=== PATIENT | male | born 1965 | race Caucasian/White ===

== ENCOUNTER 2020-08-08 07:43 | Outpatient (REF) | payer OTHER, SELFPAY ==
--- NOTE | ~2020-08-08 | MR_ITS ---
EXAMINATION: MR SHOULDER WITHOUT CONTRAST, RIGHT CLINICAL INFORMATION: Shoulder pain. Rule out torn tendon. COMPARISON: None. TECHNIQUE: MRI of the shoulder without contrast was performed on a high-field scanner. FINDINGS: ROTATOR CUFF: Mild supraspinatus tendinosis. Mild articular-sided fraying anteriorly measuring 0.8 x 0.7 cm (AP, ML). Infraspinatus, teres minor is intact. Moderate subscapularis tendinosis. No muscle atrophy or fatty infiltration. BICEPS: Thin caliber and mild irregularity of the extra-articular proximal biceps tendon. The intra-articular portion is not clearly visualize. Findings raise concern for biceps tendon at least partial tearing. CORACOACROMIAL ARCH: The undersurface of the acromion is curved with no subacromial spur. Mild acromioclavicular joint arthritis. Minimal subacromial-subdeltoid bursitis. LABRUM/CAPSULE: Superior labral degeneration, with free edge fraying, as well as with T2 bright signal in the posterior aspect of the superior labrum, appearing to extend to the free edge, raises concern for a tear. Remainder of the labrum appears intact. Inferior capsule is intact. GLENOHUMERAL JOINT/MARROW: No fracture. Subcortical cyst and presumed reactive edema in the lesser tuberosity. Small joint fluid. MR/MR shoulder RT wo con IMPRESSION: 1. Mild supraspinatus tendinosis. 0.8 x 0.7 cm articular-sided fraying anteriorly. 2. Moderate subscapularis tendinosis. 3. Findings raise concern for tear of the long head biceps tendon, with probable at least partial tearing. The intra-articular portion of the tendon is not clearly visualize. 4. Superior labral degenerative fraying/tearing, detailed above. 5. Mild acromioclavicular osteoarthritis. Minimal subacromial-subdeltoid bursitis.
== END 2020-08-08 07:44 | disposition home or self-care (01) ==
LOC: HO.MRI 07:43
PROVIDERS: PCP Internal Medicine; Visit Provider Internal Medicine
DX: M25.511 Pain in right shoulder (principal)
CPT/HCPCS: 73221

== ENCOUNTER 2020-08-14 10:53 | Outpatient (REF) | payer OTHER, SELFPAY ==
--- NOTE | ~2020-08-14 | XR_ITS ---
EXAMINATION: XR SHOULDER, RIGHT CLINICAL INFORMATION: Pain COMPARISON: Previous x-ray September 2019 and MRI July 2020 TECHNIQUE: Three views of the right shoulder. FINDINGS: Bone alignment is normal. No fracture or dislocation is seen. There is mild arthritis at the acromioclavicular joint. The glenohumeral joint is normal. Soft tissues are normal. XR/XR shoulder RT min 2V IMPRESSION: Mild arthritis at the acromioclavicular joint.
== END 2020-08-14 10:54 | disposition home or self-care (01) ==
LOC: HO.HOSX 10:53
PROVIDERS: Visit Provider Orthopaedic Surgery
DX: Z13.89 Encounter for screening for other disorder (principal)

== ENCOUNTER → 2020-08-16 09:30 | Outpatient (BNVA) | payer OTHER, SELFPAY | PROVIDERS: PCP Internal Medicine; Visit Provider Orthopaedic Surgery | DX: M75.41 Impingement syndrome of right shoulder (principal); S46.111S Strain of muscle, fascia and tendon of long head of biceps, right arm, sequela | CPT/HCPCS: 73030 ==

== ENCOUNTER → 2020-09-05 08:09 | Outpatient (BNVA) | payer OTHER, SELFPAY | PROVIDERS: PCP Internal Medicine; Visit Provider Physician Assistant ==

== ENCOUNTER 2020-09-07 06:10 | Day surgery (SDC) | payer OTHER, SELFPAY ==
--- NOTE | 2020-09-05 13:44 | HO.ANESPROP2 ---
Documented by User: Saira Preston 09/05/20 13:45 HPI - Anesthesia Eval Consult details Narrative: 54yo M for Shoulder Arthroscopy, Arthroscopic Subacromial Decompression, Right PMFSH Active Problems Active Problems: All Active Problems (Updated 09/01/20 @ 10:56 by Helen Cruz) Rotator cuff impingement syndrome of right shoulder (Acute) Rupture of right long head biceps tendon (Acute) Past Medical History Medical History No significant medical problems Surgical History Surgical History Hx of cholecystectomy Hx of hernia repair Hx of vasectomy Social History Social History Smoking Status: Former smoker Smoking Quit Date: 2010 Use of substances other than those prescribed or required for medical reasons: Yes Substance Use Frequency: Daily Advance Directives Information Provided: No Current occupational status: employed Current occupation: [employer]/right handed Meds Allergies Allergy/AdvReac Type Severity Reaction Status Date / Time bacitracin [Bacitracin] Allergy Severe ANAPHYLAXIS Verified 09/07/20 06:18 ALL antibiotic ointments Allergy Severe anaphylaxis Uncoded 09/01/20 11:01 Exam Exam Date and Time: September 05, 2020 1344 Height,Weight and Vital Signs: Height 5 ft 2 in Assessment and Plan Assessment Anesthesia Assessment: Chart Reviewed Documented by User: Chalo Everett MD 09/07/20 08:09 PMFSH Past Medical History Medical History No significant medical problems Surgical History Surgical History Hx of cholecystectomy Hx of hernia repair Hx of vasectomy Social History Social History Smoking Status: Former smoker Smoking Quit Date: 2010 Use of substances other than those prescribed or required for medical reasons: Yes Substance Use Frequency: Daily Advance Directives Information Provided: No Current occupational status: employed Current occupation: [employer]/right handed Meds Allergies Allergy/AdvReac Type Severity Reaction Status Date / Time bacitracin [Bacitracin] Allergy Severe ANAPHYLAXIS Verified 09/07/20 06:18 ALL antibiotic ointments Allergy Severe anaphylaxis Uncoded 09/01/20 11:01 Exam Airway Mallampati Class: II TM Dist: >3cm Neck ROM: Full Loose/Missing/Broken Teeth: No Heart: RRR Lungs: NL Assessment and Plan Assessment Anesthesia Assessment: Anesthesia Plan Discussed and Chart Reviewed Final Anesthetic Review NPO: Yes ASA Class: I Final Preanesthetic Review: No Changes in Pt Med Stat, Meds/Allgs Chart Reviewed, Consent Obtained/Reviewed and Anes Risks/Benef Reviewed Patient Risk: Low Procedure Risk: Low Anesthetic Plan Anesthetic Plan: GA Disposition: Standard PACU
[2020-09-07] VITALS (9 sets, daily range): BP systolic 118–156; BP diastolic 84–105; PULSE 57–87; RESP 16–20; TEMP 36.4–37; O2SAT 96–100; BMI 24.7
[2020-09-07] MEDS: Lactated Ringers 1,000 ML 100 ML IVCONT (06:39)
--- NOTE | 2020-09-07 07:51 | MHC.SHP ---
Pre-Procedural Eval Section A The patient is an INPATIENT: No Changes since office visit: No Cold of Flu in the past 2 weeks, No New Medical Problems, No Changes in Medication and No Patient answered all questions The History & Physical has been completed within 30 days and I have reviewed it.: Yes Section B Chief Complaint: Impingment syndrome, Strain of muscle Allergies: Allergies Allergy/AdvReac Type Severity Reaction Status Date / Time bacitracin [Bacitracin] Allergy Severe ANAPHYLAXIS Verified 09/07/20 06:18 ALL antibiotic ointments Allergy Severe anaphylaxis Uncoded 09/01/20 11:01 Plan I have reviewed the history and physical and performed a pertinent physical examination on my patient. No changes have occurred unless specified.
--- NOTE | 2020-09-07 09:17 | W.PM.OPN ---
Operative Note Operative Note Date of Service: 09/07/20 Narrative: ARTHROSCOPIC SHOULDER SURGERY SURGEON: Dr Ceci Patiño) Kvng SHIRLEY RESPIRATORY SCIENTIST: PREOP DIAGNOSIS:right rotator cuff impingement with long head of biceps tear POSTOP DIAGNOSIS:same with labral injury OPERATIVE PROCEDURE: Arthroscopic surgery right shoulderwith debridement labrum and long head of biceps origin/arthroscopic subacromial decompression CLINICAL NOTE: This individual comes in today in regards to their shoulder. He has had ongoing problems with right extended period time. It failed non management. Therefore after explaining risks benefits alternatives and answering her questions it was mutually agreed upon to carry following procedure. OPERATIVE DETAILS Under regional and general anesthetic the patient was placed supine initially on the operating table. An EUA was performed demonstrated full range of motion no evidence of any instability. The patient was then placed in the left lateral decubitus position. The shoulder and arm were then prepped and draped in standard fashion. Surgical time-out was then performed patient's identified. Procedure confirmed. Site confirmed. Medical and allergy history was reviewed. No preoperative antibiotics. Standard DVT prophylaxis. All other items were discussed and agreed upon. The arm was placed in approximately 35 be degrees of abduction with 10 degrees of forward flexion and approximately 12 lb of traction. Standard posterior portals established through a stab incision and the glenohumeral joint was entered atraumatically. A standard anterior portals established from an inside-out technique. The joint was then inspected. The long head head of the biceps was missing with the stump remaining. The rotator cuff was then inspected. it demonstrated that it was fully intact. There was a normal bare area. The glenohumeral joint was then inspected.. At this point everything that could be done within the glenohumeral joint had been accomplished and therefore we proceeded to the next portion of the surgery. The scope instruments were withdrawn from the glenohumeral joint. A standard lateral portal was established through a stab incision and the cannula inserted. The scope was introduced in the subacromial space from the posterior portal. Using a combination of the ArthroCare and the Ultra cut shaver the bursal tissue was removed. Cautery was used to us was coagulated any bleeders. The periosteal was removed from the undersurface of the acromion. The AC joint was identified and opened. The undersurface of the clavicle was noted. There was a type 3 acromion. The rotator cuff was inspected from the bursal side and found to be intact. Using the Ultra cut as well as the oval rosamaria, the anterior osteophyte was completely removed. The acromion was flat from anterior to posterior medial to lateral. The undersurface of the clavicle was beveled. At this point there was plenty room for the rotator cuff. This remaining CA ligament was released with the ArthroCare. And therefore proceeded to closure. All scope instruments were withdrawn. The stab incisions were closed with interrupted nylon sutures. Sterile dressings were then applied. The arm was taken out of traction placed in a sling. The patient then had the anesthesia reversed. They were transferred supine to the room bed then taken to the recovery room in good condition. Intraoperatively there was less than 10 cc blood loss. No complications.
[2020-09-07] MEDS: Acetaminophen 325 MG TABLET 650 MG PO (09:34)
[2020-09-07] MEDS: ondansetron HCL 4 MG/2 ML VIAL IVPUSH (09:58)
[2020-09-07] MEDS: Ketorolac Tromethamine 15 MG/ML VIAL IVPUSH (10:28)
== END 2020-09-07 11:43 | disposition home or self-care (01) ==
PROVIDERS: PCP Internal Medicine; Visit Provider Orthopaedic Surgery
PROC: (CPT 29805; principal; 2020-09-07 07:30)
DX: S46.111A Strain of muscle, fascia and tendon of long head of biceps, right arm, initial encounter (principal); M75.41 Impingement syndrome of right shoulder; X58.XXXA Exposure to other specified factors, initial encounter; Y93.9 Activity, unspecified; Y92.9 Unspecified place or not applicable; Y99.8 Other external cause status; Z87.891 Personal history of nicotine dependence; Z88.1 Allergy status to other antibiotic agents
CPT/HCPCS: 29823; 29826; J0171; J1170; J1885; J2250; J2405; J2550

== ENCOUNTER → 2020-09-19 09:42 | Outpatient (BNVA) | payer OTHER, SELFPAY | PROVIDERS: PCP Internal Medicine; Visit Provider Physician Assistant ==

== ENCOUNTER 2020-10-06 08:00 | Outpatient (RCR) | payer OTHER, SELFPAY ==
--- NOTE | 2020-09-29 08:53 | MHC.PT.EP ---
[facility] [place] Office [place] Office [place] Office [address] Onesimo Castanon [address] [phone] F: [phone] F: [phone] F: [phone] F: [phone] Physical Therapy Plan of Care Date of Evaluation: Date of Surgery: 09/07/20 Diagnosis: post-op R SAD on 09/07/20 Assessment: pt presents post R SAD on 09/07/20. pt presents to physical therapy with pain, decreased range of motion, decreased strength, impaired functional mobility, and impaired postural awareness. pt is a good candidate for skilled PT due to age, potential remediation of impairments, typical disease/condition progression and prognosis, comorbidities, and motivation. pt would benefit from tailored strengthening and stretching exercise program, functional training, postural re-training, neuromuscular re-education, modalities as needed for pain, equipment safety demonstration. Frequency and Duration: The patient will be seen 2x/wk for 6 wks Short Term Goals: pt will be I w/ HEP to promote self-management of condition. pt will improve R shoulder flexion to 160 degrees to facilitate ease in reaching for objects on higher shelves. 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 pt will report a statistically significant improvement in self-reported outcome measure, SPADI, to promote return to PLOF. Treatment Plan: Modalities to reduce pain, spasms and effusion. Manual therapy to restore motion and function. Therapeutic exercise to improve strength and flexibility. Neuromuscular re-education for posture and balance. Therapeutic activities to return to functional activities of daily living. Electronically signed by: Faustina Florian PT, DPT Please sign and return to therapist. Thank you for your referral.
--- NOTE | 2020-10-20 08:41 | MHC.PT.DC ---
[facility] [place] Office [place] Office [place] Office [address] Onesimo Castanon [address] [facility] [phone] F: [phone] F: [phone] F: [phone] F: [phone] Physical Therapy Discharge Report Diagnosis: post-op R SAD on 09/07/20 Date of Surgery: 09/07/20 Date of Evaluation: 09/29/20 Date of Discharge: 10/20/20 Treatments to Date: 3 Cancellations to Date: 2 No Shows to Date: 2 Discharge Status: Visit Non-compliance Discharge Summary: The patient has no showed two consecutive appointments. Per [facility] policy the patient is to be discharged for visit non-compliance. He is discharged from this physical therapy plan of care. Electronically signed by: Faustina Florian PT, DPT Please sign and return to therapist. Thank you for your referral.
== END 2020-10-20 08:42 | disposition other institution (70) ==
LOC: HO.PT 08:00
PROVIDERS: PCP Internal Medicine; Visit Provider Orthopaedic Surgery
DX: M75.41 Impingement syndrome of right shoulder (principal)
CPT/HCPCS: 97110; 97161

== ENCOUNTER → 2020-10-17 08:36 | Outpatient (BNVA) | payer OTHER, SELFPAY | PROVIDERS: PCP Internal Medicine; Visit Provider Physician Assistant ==

== ENCOUNTER 2025-02-14 08:55 | Outpatient (AMB) | payer OTHER, SELFPAY ==
--- NOTE | 2025-02-14 07:55 | A.OFFPC_ITS ---
Vital Signs 02/14/25 09:02 Height 5 ft 2 in Weight 134 lb BMI 24.5 BP 140/84 H Blood Pressure Location Rt brachial Position Sitting Respiration 18 Pulse 77 Pulse Source Pulse Oximeter Temp 98.6 F Temp Source Temporal Artery Scan Pulse Oximetry (%) 99 Oxygen Delivery Method Room Air Intake Visit Reasons: Routine / Dr Irizarry - see comments School Psychological Examiner Required: No Accompanied by: Self / Same As Patient Allergies bacitracin (Bacitracin) Allergy (Severe, Verified 02/14/25 07:56) ANAPHYLAXIS ALL antibiotic ointments Allergy (Severe, Uncoded 10/17/20 08:52) anaphylaxis Medication List - Last Reconciled 02/14/25 by JEREMIE Cox multivitamin 1 tab PO DAILY Tobacco use date assessed: 02/14/25 Dental Screening Dental Screen Date: 02/14/25 Did you have a dental visit in the last 12 months?: Yes Did you have a dental problem in the last 6 months where you did not have access to dental care?: No Was dental information given to patient?: Patient has dentist HPI HPI Comments History of Present Illness Details The patient is a 59-year-old male presenting for a wellness visit and management of chronic conditions. He was a patient of Dr. Teresa. He is allergic to Bacitracin. He is not on Medications. He is not a believer of health screening. Patient worked at the [employer] through the covid pandemic. The patient was diagnosed with Post-Traumatic Stress Disorder (PTSD)by a counselor following the traumatic events at work, including witnessing multiple deaths. He experiences symptoms such as intrusive memories, nightmares, and auditory hallucinations related to these events, which have improved but still persist. The patient has opted not to continue counseling and prefers natural remedies over medications. He is walking daily. He is now retired and spends a lot of time fishing. The patient also reports allergic rhinitis, with symptoms of postnasal drip and choking at night, attributed to environmental allergens like goldenrod and Larchwood's lace. He is not interested in treatment at this time. Patient declines lab testing. Last time was done in 2019. He declines colon cancer screening. Patient was informed and verbally consented to the use of an ambient scribe for clinic note documentation during this visit. [facility] Medical History (Updated 02/14/25 @ 09:52 by JEREMIE Cox) Allergic rhinitis Chronic post-traumatic stress disorder (PTSD) Health care maintenance No significant medical problems Surgical History Hx of cholecystectomy Hx of hernia repair Hx of vasectomy Family History (Updated 02/14/25 @ 09:44 by JEREMIE Cox) Father No problems noted. Social History (Updated 02/14/25 @ 09:46 by JEREMIE Cox) Housing: Condominium Patient Tobacco Use Status: Former Tobacco user Years Smoked: 10 years-quit for 10 years, started again for 10 years, quit for 17 e-Cigarette/Vaping Use: Never Used Substance Use Type: Marijuana service: No Current occupational status: retired Current occupation: [employer] - [employer]/right handed Current occupational exposures/hazards: No Cognitive needs: No Hearing needs: No Vision needs: No Questionnaire PHQ-9 Over the last 2 weeks, how often have you been bothered by any of the following problems? 1. Little interest or pleasure in doing things: not at all 2. Feeling down, depressed, or hopeless: not at all 3. Trouble falling or staying asleep, or sleeping too much: not at all 4. Feeling tired or having little energy: not at all 5. Poor appetite or overeating: not at all 6. Feeling bad about yourself - or that you are a failure or have let yourself or your family down: not at all 7. Trouble concentrating on things, such as reading the newspaper or watching television: not at all 8. Moving or speaking so slowly that other people could have noticed. Or the opposite - being so fidgety or restless that you have been moving around a lot more than usual: not at all 9. Thoughts that you would be better off or of hurting yourself in some way: not at all Total score: 0 Depression Screening Interpretation: Negative Depression Screening Done: Yes Source: Developed by Drs. Rob Laird, Yue Morales, Ross Marquez and colleagues, with an educational panda from [employer]. Thrive Questionnaire Date Thrive assessed: 02/14/25 I am a: Patient Within the past 12 months, did the food you bought not last and you didn't have the money to get more?: Never true Within the past 12 months, did you worry whether your food would run out before you got money to buy more?: Never true Do you have trouble paying for medicines?: No Do you have trouble getting transportation to medical appointments?: No Do you have trouble paying your heating and electricity bill?: No Do you have trouble taking care of your child, family member or friend?: No Do you have trouble with day-to-day activities such as bathing, preparing meals, shopping, managing finances, etc.?: No Are you currently unemployed and looking for a job?: No Are you interested in more education?: No THRIVE Score: 0 AUDIT C Alcohol Use Questionnaire (AUDIT-C) 1. How often do you have a drink containing alcohol?: 4 or more times a week 2. How many drinks containing alcohol do you have on a typical day when you are drinking?: 1 or 2 3. How often do you have six or more drinks on one occasion?: Never Total Score: 4 VANDANA-7 AMB Questionnaire VANDANA-7 Date VANDANA - 7 assessed: 02/14/25 Feeling nervous, anxious, or on edge: 0 = Not at all Not being able to stop or control worryin = Not at all Worrying too much about different things: 0 = Not at all Trouble relaxin = Not at all Being so restless that it is hard to sit still: 0 = Not at all Becoming easily annoyed or irritable: 0 = Not at all Feeling afraid as if something awful might happen: 0 = Not at all Total VANDANA-7 score (0-4 normal; 5-9 mild; 10-14 moderate; 15-21 severe): 0 Source: Developed by Drs. Rob Laird, Yue Morales, Ross Marquez and colleagues, with an educational panda from [employer]. Review of Systems Const Details: CONSTITUTIONAL Denies weight loss, fever, or fatigue HEAD/NECK Negative EAR/NOSE/MOUTH/THROAT Reports postnasal drip and choking at night RESPIRATORY Negative CARDIOVASCULAR Denies chest pain or dyspnea GASTROINTESTINAL Negative MUSCULOSKELETAL Negative NEUROLOGICAL Reports tinnitus exacerbated by stress PSYCHIATRIC Reports PTSD symptoms including nightmares and intrusive memories Physical exam (Primary Care) Vital Signs: Last Vital Signs Temp 98.6 F 02/14/25 09:02 Pulse 77 02/14/25 09:02 Resp 18 02/14/25 09:02 BP 140/84 H 02/14/25 09:02 Pulse Ox 99 02/14/25 09:02 Oxygen Delivery Method Room Air 02/14/25 09:02 BMI result Body Mass Index 24.5 GENERAL Well developed, Well nourished, in no apparent distress HEENT Head-Normocephalic Eyes- PERRLA, EOMI, Conjuctiva clear, lids WNL Ears- Canals clear, TMs WNL Mouth/Throat-No lesions, no erythema, no exudate, clear post nasal drip Neck- Supple, No lymphadenopathy, thyroid WNL RESPIRATORY Normal I:E, Clear to auscultation CARDIOVASCULAR Regular, rate and rhythm, No murmurs or rubs GASTROINTESTINAL Soft, nontender, normal bowel sounds, no masses MUSCULOSKELETAL Back- nontender Joints- no pain swelling or deformity NEUROLOGICAL Gait normal PSYCHIATRIC Oriented to person, place and time Mood and affect- anxious Appearance WNL Speech WNL Thought processes WNL Tobacco/Smoking Status: Tobacco use Status Tobacco use date assessed 02/14/25 02/14/25 08:01 Patient Tobacco Use Status Former Tobacco user 02/14/25 09:05 e-Cigarette/Vaping Use Never Used 02/14/25 09:05 PHQ-9: PHQ-9 Score PHQ-9: Total score 0 02/14/25 09:05 Depression Screening Interpretation: Negative Thrive Assessment: Date of Thrive Assessment Date Thrive assessed 02/14/25 02/14/25 08:01 Coding Level of Care Code New Pt New Pt Level 3 (91753) Patient Type New Diagnoses Chronic post-traumatic stress disorder (PTSD) F43.12 Seasonal allergic rhinitis due to pollen J30.1 Allergic rhinitis trigger: pollen Allergic rhinitis seasonality: seasonal Health care maintenance Z00.00 Time Spent (min) 25 Comment Time spent on chart review, H&P and patient education Assessment & Plan Assessment & Plan (1) Chronic post-traumatic stress disorder (PTSD): Code(s): F43.12 - Post-traumatic stress disorder, chronic Category: Medical Plan: The patient has been diagnosed with PTSD following traumatic experiences at work, including witnessing multiple deaths. He experiences symptoms such as intrusive memories and nightmares, which have improved but persist. The patient has opted not to continue counseling and prefers natural remedies over medications. Encouraged to continue walking. Patient to follow up in 1 year or sooner if symptoms persist or worsen. (2) Allergic rhinitis: Code(s): J30.9 - Allergic rhinitis, unspecified Category: Medical Qualifiers: Allergic rhinitis trigger: pollen Allergic rhinitis seasonality: seasonal Qualified Code(s): J30.1 - Allergic rhinitis due to pollen Plan: The patient reports symptoms of allergic rhinitis, including postnasal drip and choking at night, attributed to environmental allergens. He has not pursued specific medical treatment for these symptoms. Patient declines medications at t his time. Patient advised to consider false pass honey (3) Health care maintenance: Code(s): Z00.00 - Encounter for general adult medical examination without abnormal findings Category: Medical Plan: Patient declined labs or colon cancer screening. He is walking daily. He was encouraged to continue exercise and follow up if needed. Next exam in 1 year. Plan During the visit, we discussed the patient's PTSD and the importance of addressing symptoms to prevent long-term consequences. The patient expressed a preference for natural remedies and declined further counseling or medication. We also reviewed the patient's allergic rhinitis and the environmental factors contributing to his symptoms. Patient Instructions: - Continue regular exercise, such as walking, to maintain overall health. - Monitor PTSD symptoms and seek help if they worsen. - Avoid known allergens to manage allergic rhinitis symptoms.
[2025-02-14 09:02] VITALS: BP 140/84; PULSE 77; RESP 18; TEMP 37; O2SAT 99; BMI 24.5
== END 2025-02-14 10:41 | disposition home or self-care (01) ==
PROVIDERS: PCP Physician Assistant Medical; Visit Provider Physician Assistant Medical
DX: Z00.00 Encounter for general adult medical examination without abnormal findings (principal); F43.12 Post-traumatic stress disorder, chronic; J30.1 Allergic rhinitis due to pollen